=== PATIENT | female | born 1995 | race Caucasian/White ===

== ENCOUNTER 2021-05-17 13:11 | Outpatient (CLI) | payer BC, OTHER ==
[2021-05-17 16:22] LABS: BASOPHILS # (AUTO) 0.1 10^3/uL (0.0-0.1); BASOPHILS % (AUTO) 0.9 %; EOSINOPHILS # (AUTO) 0.2 10^3/uL (0.0-0.7); EOSINOPHILS % (AUTO) 1.7 %; HGB - HEMOGLOBIN 13.7 g/dL (12.0-16.0); LYMPHOCYTES # (AUTO) 3.5 10^3/uL (1.5-3.5); LYMPHOCYTES % (AUTO) 32.5 %; MEAN CORPUSCULAR HEMOGLOBIN 29.1 pg (27.0-31.0); MEAN CORPUSCULAR HGB CONC 33.4 g/dL (32.0-36.0); MEAN CORPUSCULAR VOLUME 87.2 fL (81.0-99.0); MEAN PLATELET VOLUME 10.9 fL (7.9-10.8); MONOCYTES # (AUTO) 0.8 10^3/uL (0.0-1.0); MONOCYTES % (AUTO) 7.1 %; NEUTROPHILS # (AUTO) 6.3 10^3/uL (1.5-6.6); NEUTROPHILS % (AUTO) 57.5 %; PLT - PLATELET COUNT 398 10^3/uL (130-450); RED CELL DISTRIBUTION WIDTH 13.5 % (12.0-15.0); WHITE BLOOD COUNT 10.9 x10^3/uL (4.8-10.8)
[2021-05-17 16:29] LABS: BILIRUBIN,URINE NEGATIVE (NEGATIVE); GLUCOSE, URINE (UA) NEGATIVE (NEGATIVE); KETONES,URINE (UA) NEGATIVE (NEGATIVE); LEUKOCYTE ESTERASE, URINE MODERATE (NEGATIVE); NITRITE,URINE NEGATIVE (NEGATIVE); OCCULT BLOOD,URINE LARGE (NEGATIVE); PROTEIN,URINE NEGATIVE (NEGATIVE); UROBILINOGEN,URINE 0.2 (NORMAL) E.U./dL (NORMAL)
[2021-05-17 16:32] LABS: CLARITY,URINE HAZY (CLEAR)
[2021-05-17 16:36] LABS: BACTERIA,URINE Many /HPF (None Seen); SQUAMOUS EPITHELIAL CELL,UR MANY Squamous (<= Few)
== END 2021-05-17 23:59 | disposition home or self-care (01) ==
LOC: LAB.R 13:11
PROVIDERS: ATTEND Internal Medicine
DX: R39.9 Unspecified symptoms and signs involving the genitourinary system (principal)
CPT/HCPCS: 81001; 85025; 87086

== ENCOUNTER 2021-07-18 17:44 | Emergency (ER) | payer BC, OTHER ==
[2021-07-18] MEDS ORDERED: SODIUM CHLORIDE 0.9% 1,000 ML IV STA (18:04)
[2021-07-18] MEDS ORDERED: METOCLOPRAMIDE 10 MG/2 ML VIAL IVP STA (18:04)
--- NOTE | 2021-07-18 18:07 | ED Physician Documentation ---
PD HPI ABD PAIN - Stated complaint Stated Complaint: VOMITING,NAUSEA - Chief complaint Chief Complaint: Abd Pain - History obtained from History obtained from: Patient - Additional information Additional information: Nausea and vomiting since 1 PM today after eating some suspicious soup. Some reactive abdominal pain after vomiting. No diarrhea. No sick contacts. No fevers or chills. Review of Systems Constitutional: denies: Fever, Chills GI: reports: Nausea, Vomiting. denies: Diarrhea PD PAST MEDICAL HISTORY - Present Medications Home Medications: Ambulatory Orders Medication Instructions Recorded Confirmed Metoclopramide [Reglan] 10 mg PO Q6H PRN #20 tablet 07/18/21 - Allergies Allergies/Adverse Reactions: Allergies Allergy/AdvReac Type Severity Reaction Status Date / Time Sulfa (Sulfonamide Allergy Hives Verified 07/18/21 17:56 Antibiotics) PD ED PE NORMAL - Vitals Vital signs reviewed: Yes - General General: Alert and oriented X 3, No acute distress - Cardiac Cardiac: RRR, No murmur - Respiratory Respiratory: No respiratory distress, Clear bilaterally - Abdomen Abdomen: Normal bowel sounds, Soft, Non tender - Back Back: No CVA TTP, No spinal TTP - Derm Derm: Normal color, Warm and dry - Extremities Extremities: No edema, No calf tenderness / cord - Neuro Neuro: Alert and oriented X 3, Normal speech Results - Vitals Vitals: Vital Signs - 24 hr 07/18/21 07/18/21 07/18/21 17:52 18:11 19:15 Temperature 35.9 C L Heart Rate 98 92 81 Respiratory 18 18 17 Rate Blood Pressure 119/73 110/92 H 115/87 H O2 Saturation 100 98 100 Oxygen O2 Source Room air - Labs Labs: Laboratory Tests 07/18/21 18:19 Sodium 142 Potassium 3.9 Chloride 108 Carbon Dioxide 23 Anion Gap 11.0 BUN 11 Creatinine 0.7 Estimated GFR (MDRD) 100 Glucose 91 Calcium 9.5 PD MEDICAL DECISION MAKING - ED course ED course: Vomiting x 6 hrs, benign exam. Better p meds and IVF and remained NTTP and passed PO challenge. Departure - Departure Disposition: 01 Home, Self Care Clinical Impression: Food poisoning Condition: Good Record reviewed to determine appropriate education?: Yes Instructions: ED Nausea Vomiting Prescriptions: Metoclopramide [Reglan] 10 mg PO Q6H PRN #20 tablet PRN Reason: nausea or headache Comments: Return in 24 hours if not better, anytime for new or worsening symptoms. Prescription sent electronically to [facility] in [place]. Discharge Date/Time: 07/18/21 19:20
[2021-07-18 18:39] LABS: CALCIUM 9.5 mg/dL (8.5-10.3); CREATININE 0.7 mg/dL (0.4-1.0); POTASSIUM 3.9 mmol/L (3.5-5.0)
[2021-07-18 19:19] VITALS: BP 115/87
== END 2021-07-18 19:20 | disposition home or self-care (01) ==
LOC: ED 17:44
DX: A05.9 Bacterial foodborne intoxication, unspecified (principal)
CPT/HCPCS: 36415; 80048; 96374; 99282; 99283; J2765

== ENCOUNTER 2021-09-12 12:14 | Outpatient (CLI) | payer BC, OTHER ==
[2021-09-14 13:32] LABS: NIL 0.03 IU/mL; TB1-NIL 0.18 IU/mL; TB2-NIL 0.23 IU/mL
== END 2021-09-12 12:15 | disposition home or self-care (01) ==
LOC: LAB 12:14
PROVIDERS: ATTEND Internal Medicine
DX: Z20.1 Contact with and (suspected) exposure to tuberculosis (principal)
CPT/HCPCS: 86480

== ENCOUNTER 2021-09-25 08:00 | Outpatient (CLI) | payer BC, OTHER ==
[2021-09-25 16:30] LABS: BASOPHILS # (AUTO) 0.1 10^3/uL (0.0-0.1); BASOPHILS % (AUTO) 0.6 %; EOSINOPHILS # (AUTO) 0.1 10^3/uL (0.0-0.7); EOSINOPHILS % (AUTO) 1.1 %; HCT - HEMATOCRIT 40.7 % (37.0-47.0); HGB - HEMOGLOBIN 13.8 g/dL (12.0-16.0); LYMPHOCYTES # (AUTO) 3.4 10^3/uL (1.5-3.5); LYMPHOCYTES % (AUTO) 26.7 %; MEAN CORPUSCULAR HEMOGLOBIN 28.9 pg (27.0-31.0); MEAN CORPUSCULAR HGB CONC 33.9 g/dL (32.0-36.0); MEAN CORPUSCULAR VOLUME 85.3 fL (81.0-99.0); MEAN PLATELET VOLUME 9.5 fL (7.9-10.8); NEUTROPHILS % (AUTO) 63.4 %; PLT - PLATELET COUNT 439 10^3/uL (130-450); RED BLOOD COUNT 4.77 10^6/uL (4.20-5.40); RED CELL DISTRIBUTION WIDTH 13.2 % (12.0-15.0); WHITE BLOOD COUNT 12.6 x10^3/uL (4.8-10.8)
[2021-09-25 21:25] LABS: ESTIMATED AVERAGE GLUCOSE 114 mg/dL (70-100); HEMOGLOBIN A1c% 5.6 % (4.27-6.07)
== END 2021-09-25 23:59 | disposition home or self-care (01) ==
LOC: LAB.R 08:00
PROVIDERS: ATTEND Internal Medicine
DX: D72.829 Elevated white blood cell count, unspecified (principal); R73.01 Impaired fasting glucose
CPT/HCPCS: 83036; 85025